=== PATIENT | female | born 1935 | race Caucasian/White ===

== ENCOUNTER 2019-09-05 05:25 | Observation (INO) | payer MEDICARE, OTHER ==
[2019-08-29 08:38] LABS: HEMATOCRIT 37.4 % (37.0-47.0); HEMOGLOBIN 12.2 gm/dL (12.0-15.0); MCH 29.4 pg (26.0-34.0); MCHC 32.7 g/dL (28.0-37.0); MCV 89.6 fL (80.0-100.0); MPV 7.9 fl. (7.2-11.1); RBC 4.17 mil/uL (4.20-5.00); RDW-CV 15.5 % (10.5-14.5); WBC 8.1 thou/uL (4.0-11.0)
[2019-08-29 08:48] LABS: INR 1.1; PROTIME 11.4 Seconds (9.20-11.50)
[2019-08-29 08:56] LABS: ALBUMIN 3.2 g/dL (3.4-5.0); ALKALINE PHOSPHATASE 65 U/L (46-116); ANION GAP 9 mmol/L (7-16); BUN 18 mg/dL (7-18); CALCIUM 8.7 mg/dL (8.5-10.1); CHLORIDE 103 mmol/L (98-107); CO2 28 mmol/L (21-32); CREATININE 1.2 mg/dL (0.6-1.3); GLUCOSE 113 mg/dL (70-99); POTASSIUM 3.8 mmol/L (3.5-5.1); SGPT 23 U/L (30-65); SODIUM 140 mmol/L (136-145); TOTAL BILIRUBIN 0.3 mg/dL (<0.1-1.0); TOTAL PROTEIN 7.3 g/dL (6.4-8.2)
[2019-08-29 08:57] LABS: SGOT < 5 U/L (15-37)
[2019-08-29 09:01] LABS: URINE BILIRUBIN NEGATIVE (Negative); URINE BLOOD NEGATIVE (Negative); URINE CLARITY CLEAR; URINE COLOR YELLOW; URINE GLUCOSE-RANDOM NEGATIVE (Negative); URINE KETONES NEGATIVE (Negative); URINE LEUKOCYTES-REFLEX NEGATIVE (Negative); URINE NITRITE-REFLEX NEGATIVE (Negative); URINE PROTEIN NEGATIVE (Negative); URINE SPECIFIC GRAVITY 1.015 (1.005-1.030); URINE UROBILINOGEN 0.2 E.U./dl (0.2-1.0)
[~2019-09-05] VITALS: Ht 152.4 cm; Wt 61.2 kg
--- NOTE | ~2019-09-05 | OP ---
[facility] [address] [place] [address] OPERATIVE REPORT Name: ADDISON KRUEGER Room: [address] IN M.R.#: [id number] Admission: 09/05/19 Attend Phys: Zamzam Watts Discharge: Date of : 35 Report #: [id number] THIS REPORT FOR: //name// cc: Ford Sullivan John E. 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 PROCEDURE: Right shoulder reverse total shoulder arthroplasty. SURGEON: Jewel Alex II, DO. CONTROLLER INSTRUCTOR: LALA Shahid. ANESTHESIA: General endotracheal. ESTIMATED BLOOD LOSS: 50 mL. ANTIBIOTICS: Vancomycin preoperatively due to PENICILLIN ALLERGY. COMPLICATIONS: None. DRAINS: None. CONDITION OF THE PATIENT: Stable to recovery room. IMPLANTS: Listed in operative record and progress note with Gabriella implants. DESCRIPTION OF PROCEDURE: The patient was taken to the operative suite, placed supine on the operative table, given appropriate anesthesia. The patient's affected shoulder was sterilely prepped and draped in modified beach chair position. All bony prominences were well padded. Surgery began by an anterior deltopectoral incision. This was carried down to the subcutaneous tissues. The deltoid was reflected and careful hemostasis was obtained utilizing electrocautery. Careful care was performed on the cephalic vein and axillary [facility] [address] [place] [address] OPERATIVE REPORT Name: ADDISON KRUEGER Room: [address] ADM IN M.R.#: [id number] Admission: 09/05/19 Attend Phys: Zamzam Watts Discharge: Date of : 35 Report #: [id number] nerve. The anterior subscapularis was then reflected off of the humerus. Biceps tendon was tenodesed to the pectoralis and it was then clipped from its proximal attachment. Remaining rotator cuff was reflected off of the humeral head to expose this region. The starting broach was then utilized for the humeral head and canal. This was taken up to appropriate size. The head cutting guide was then applied, checked with the appropriate height. Retractors were placed to protect the skin and the cut was made to remove the proximal aspect of the humerus. This was then broached up to appropriate size and this broach was left in place with good fit and fill. It was covered with the bone protecting disk. Attention was then turned to the glenoid. Retractors were applied. The glenoid was exposed around the labrum to remove excess soft tissues. The glenosphere alignment tool was then applied and the central guide pin was then placed. It was then reamed in appropriate fashion to get punctate bleeding along the shoulder and glenoid region, and the glenosphere was then placed utilizing the central cancellous screw. The superior and inferior screws were then replaced in appropriate fashion. The glenosphere was malleted into position with an eccentric component. Attention was then turned back to the humerus. It was then trialed with appropriate spacer. Once the appropriate size was found, the final was then malleted into position on the back table and then placed into the humerus in appropriate fashion, then malleted into appropriate position. This was once again reduced and showed excellent fit and fill and excellent stability of the shoulder with all range of motion. Copious irrigation was then performed. The deltopectoral incision was then closed utilizing #1 Vicryl in running fashion. The skin was closed with 2-0 Vicryl and running Monocryl stitch. Dermabond and sterile dressing applied as well as an UltraSling. The patient was transported to the recovery room in stable condition. Counts were correct at the end of the procedure. By: [id number] Alex II DO /nt
[~2019-09-05 05:25] MED LIST: ACIDOPHILUS1 EAC4 PO; ALBUTEROL2.5 MG/0.5 INH; ALLEGRA ALLERG180 MG PO; ARNUITY ELLIP200 MCG INH; ASPIRIN EC325 MG PO; B-12 COMPL1000 MCG/1 IM; BENTYL 10 MG CA10 M1 PO; CALCIUM CARBON600 MG PO; CITRACAL + D31 EACH PO; CLARITIN10 MG PO; D3 + K2 DOTS 11 EACH PO; EPIDIOLEX100 MG/1 M PO; FLONASE 0.05%50 MCG INH; FUROSEMIDE 20 M20 MG PO; GAVISCON LIQUI355 ML PO; IRON325 PO; LANOXIN125 MCG PO; LEVOTHYROXINE0.05 MG PO; LISINOPRIL20 MG PO; MAGNESIUM250 M1 PO; MICARDIS 20MG T20 M1 PO; MULTI VITAMIN1 EACH PO; NEXIUM40 MG PO; NORTRIPTYLINE H10 M1 PO; NORVASC2.5 MG PO; PRADAXA75 MG PO; SLOW FE142 MG PO; SORINE 80 MG TA80 M1 PO; VITAMIN B-121000 MC3 PO; VITAMIN D325 MC3 PO; VITAMINC500 PO; ZOCOR20 MG PO; ZOFRAN8 MG PO
[2019-09-05 10:00] VITALS: BP 157/55
[2019-09-05 16:12] VITALS: BP 152/67
--- NOTE | 2019-09-05 16:34 | NUR ---
PT ADMITTED POST OP SHOULDER REPLACEMENT. PT ALERT AND ORIENTED. PT RESTING IN BED. PT HAS VOIDED. PT DENIES PAIN AT THIS TIME. PT RESTING IN BED. CALL LIGHT WITHIN REACH. FALL RISK PRECAUTIONS IN PLACE. WILL CONTINUE TO MONITOR.
--- NOTE | 2019-09-05 17:17 | NUR ---
PT REMAINED ALERT AND ORIENTED. PT RESTING IN BED. PT HAS NOT GOTTEN UP OUT OF BED. PT PAIN CONTROLLED DUE TO BLOCK. FALL RISK PRECAUTIONS IN PLACE. HOURLY ROUNDING COMPLETED. WILL CONTINUE TO MONITOR.
[2019-09-05 19:26] VITALS: BP 125/40
[2019-09-06] VITALS (7 sets, daily range): BP systolic 116–136; BP diastolic 33–47
[2019-09-06] MEDS ORDERED: PERCOCET PO (08:08)
--- NOTE | 2019-09-06 15:12 | NUR ---
PT GIVEN DISCHARGE INFORMATION, CARE NOTES, AND PRECRIPTIONS. IV REMOVED. PT SENT HOME WITH POLAR PACK. PT BELONGINGS GATHERED. FALL RISK PRECAUTIONS IN PLACE. HOURLY ROUNDING COMPLETED. WILL CONTINUE TO MONITOR.
== END 2019-09-06 15:29 | disposition home or self-care (01) ==
LOC: M.PRE 05:25 → M.TBA 08:49 → M.ORTHSURG 08:49 → M.PRE 11:24 → M.ORTHSURG 16:00
PROVIDERS: Orthopaedic Surgery; ADMIT Internal Medicine; ATTEND Internal Medicine
DX: Z03.818 Encounter for observation for suspected exposure to other biological agents ruled out (principal); M19.011 Primary osteoarthritis, right shoulder; E03.9 Hypothyroidism, unspecified; I48.91 Unspecified atrial fibrillation